=== PATIENT | male | born 1975 | race Native Hawaiian/Other Pacific Islander ===

== ENCOUNTER 2020-08-14 21:16 | Emergency (ER) | payer BC ==
[~2020-08-14] VITALS: Ht 172.7 cm; Wt 83.9 kg
[2020-08-14 21:36] VITALS: BP 130/79; TEMP 98.3
[2020-08-14 23:31] LABS: PLATELET COUNT 177 K/uL (142-355)
== END 2020-08-15 00:08 | disposition home or self-care (01) ==
LOC: ED 21:16
PROVIDERS: Emergency Medicine Emergency Medical Services
DX: L03.113 Cellulitis of right upper limb (principal)
CPT/HCPCS: 36415; 85027; 87040; 96360; 96365; 96375; 99284; J1885

== ENCOUNTER 2021-03-19 08:22 | Emergency (ER) | payer OTHER | END 2021-03-19 10:20 | disposition home or self-care (01) | LOC: ED 08:22 | DX: S80.262A Insect bite (nonvenomous), left knee, initial encounter (principal); L03.116 Cellulitis of left lower limb; W57.XXXA Bitten or stung by nonvenomous insect and other nonvenomous arthropods, initial encounter; Y93.89 Activity, other specified; Y92.89 Other specified places as the place of occurrence of the external cause; Y99.8 Other external cause status | CPT/HCPCS: 96372; 99283; J1885; J2930 ==

== ENCOUNTER 2021-04-08 01:33 | Emergency (ER) | payer OTHER ==
[~2021-04-08] VITALS: Ht 172.7 cm; Wt 90.7 kg
[2021-04-08 03:15] VITALS: BP 114/67; TEMP 98.9
== END 2021-04-08 03:15 | disposition home or self-care (01) ==
LOC: ED 01:33
DX: U07.1 COVID-19 (principal)
CPT/HCPCS: 87635; 96372; 99283; J1100; U0003

== ENCOUNTER 2022-05-07 21:04 | Emergency (ER) | payer OTHER ==
[~2022-05-07] VITALS: Ht 172.7 cm; Wt 81.6 kg
[2022-05-07 21:15] VITALS: TEMP 99.4
[2022-05-07] MEDS ORDERED: CLINDAMYCIN HY300 MG PO (21:33)
[2022-05-07 21:50] VITALS: BP 144/93
== END 2022-05-07 21:50 | disposition home or self-care (01) ==
LOC: ED 21:04
DX: L02.831 Carbuncle of head [any part, except face] (principal)
CPT/HCPCS: 99282

== ENCOUNTER 2022-08-18 15:28 | Emergency (ER) | payer OTHER ==
[~2022-08-18] VITALS: Ht 172.7 cm; Wt 81.6 kg
[~2022-08-18 15:28] MED LIST: CLINDAMYCIN HY300 MG PO
[2022-08-18 15:40] VITALS: BP 131/91; TEMP 98.2
== END 2022-08-18 17:10 | disposition home or self-care (01) ==
LOC: ED 15:28
DX: S00.03XA Contusion of scalp, initial encounter (principal); S16.1XXA Strain of muscle, fascia and tendon at neck level, initial encounter; M54.59 Other low back pain; V89.2XXA Person injured in unspecified motor-vehicle accident, traffic, initial encounter; Y92.89 Other specified places as the place of occurrence of the external cause
CPT/HCPCS: 99283